=== PATIENT | female | born 1950 | race Caucasian/White ===

== ENCOUNTER 2016-04-10 13:41 | Emergency (ER) | payer MEDICARE ==
[2016-04-10] MEDS ORDERED: PREDNISONE 20 MG TAB PO ONE (13:59)
[2016-04-10] MEDS ORDERED: IPRATROPIUM/ALBUTEROL (0.5MG/3MG) NEB INH ONE (13:59)
[2016-04-10] MEDS ORDERED: BENZONATATE 100 MG CAPSULE PO ONE (14:00)
--- NOTE | 2016-04-10 14:01 | Emergency Department Record ---
History of Present Illness - General Chief Complaint: Cough Stated Complaint: COUGH,CHEST CONGESTION,LOSS OF VOICE Time Seen by Provider: 04/10/16 13:54 Source: Patient Mode of Arrival: Ambulatory Limitations: No limitations - History of Present Illness Initial Comments: 65 yo female presents with a cough for about one week. She is a former smoker. The cough is non productive. She has nasal drainage. She did not get a flu shot. She has had low grade fevers. No NVD. MD Complaint: Cough Onset/Timin -: Week(s) Severity: Moderate Consistency: Constant Improves With: Nothing Worsens With: Other (cough) Context: Sick contacts Associated Symptoms: Cough - Related Data Home Medications Medication Instructions Recorded Confirmed Last Taken Carvedilol [Coreg] 3.125 mg PO BID 10/09/15 04/10/16 04/09/16 Lisinopril 2.5 mg PO DAILY 10/09/15 04/10/16 04/09/16 Simvastatin [Zocor] 20 mg PO QHS 10/09/15 04/10/16 04/09/16 Previous Rx's Medication Instructions Recorded Naproxen [Naprosyn] 500 mg PO Q12H #30 tab 02/14/16 Azithromycin [Zithromax] 250 mg PO DAILY #4 tab 04/10/16 Benzonatate [Tessalon] 1 cap PO Q8H PRN #20 cap 04/10/16 Prednisone [Prednisone 20Mg] 20 mg PO BID #10 tab 04/10/16 Allergies Allergy/AdvReac Type Severity Reaction Status Date / Time No Known Drug Allergies Allergy Verified 04/10/16 13:46 Travel Screening - Travel/Exposure Within Last 30 Days Have you traveled within the last 30 days?: No - Travel/Exposure Within Last Year Have you traveled outside the [place] in the last year?: No - Additonal Travel Details Have you been exposed to anyone with a communicable illness?: No - Travel Symptoms Symptom Screening: None Review of Systems Constitutional: Reports: Fever. Denies: Chills, Malaise Eyes: Denies: Eye discharge ENT: Reports: Congestion. Denies: Throat pain Respiratory: Reports: Cough, Wheezes Cardiovascular: Denies: Chest pain, Palpitations, Syncope Endocrine: Denies: Fatigue Gastrointestinal: Denies: Abdominal pain, Diarrhea, Nausea, Vomiting Genitourinary: Denies: Dysuria, Urgency Musculoskeletal: Denies: Arthralgia, Back pain Skin: Denies: Bruising, Change in color Neurological: Denies: Headache Psychiatric: Denies: Anxiety Hematological/Lymphatic: Denies: Blood Clots, Easy bleeding, Easy bruising, Swollen glands Past Medical History - SOCIAL HISTORY Smoking Status: Former smoker Alcohol Use: None Drug Use: None - RESPIRATORY Hx Respiratory Disorders: No - CARDIOVASCULAR Hx Cardio Disorders: Yes Hx Pacemaker/Defib: Yes - NEURO Hx Neuro Disorders: No - GI Hx GI Disorders: No - Hx Genitourinary Disorders: No - ENDOCRINE Hx Endocrine Disorders: No Hx Diabetes: No Hx Thyroid Disease: No - MUSCULOSKELETAL Hx Musculoskeletal Disorders: No - PSYCH Hx Psych Problems: No - HEMATOLOGY/ONCOLOGY Hx Hematology/Oncology Disorders: No Family Medical History Any Significant Family History?: Yes Hx Heart Disease: Father Physical Exam - General General Appearance: Alert, Oriented x3, Cooperative, No acute distress Limitations: No limitations - Head Head exam: Normal inspection - Eye Eye exam: Normal appearance, PERRL. negative: Periorbital swelling, Scleral icterus - ENT ENT exam: Mucous membranes moist, Normal orophraynx, TM's normal bilaterally Ear exam: Normal external inspection. negative: External canal tenderness Nasal Exam: Discharge, Sinus tenderness. negative: Active bleeding, Dried blood Mouth exam: Normal external inspection, Tongue normal Teeth exam: Normal inspection. negative: Dental caries Throat exam: Normal inspection. negative: Tonsillar erythema, Tonsillar exudate - Neck Neck exam: Normal inspection, Full ROM. negative: Tenderness - Respiratory Respiratory exam: Decreased breath sounds, Rhonchi, Wheezes. negative: Normal lung sounds bilaterally, Accessory muscle use, Prolonged expiratory, Respiratory distress, Stridor - Cardiovascular Cardiovascular Exam: Regular rate, Normal rhythm, Normal heart sounds - GI/Abdominal GI/Abdominal exam: Soft - Rectal Rectal exam: Deferred - exam: Deferred - Extremities Extremities exam: Normal inspection, Full ROM, Normal capillary refill. negative: Pedal edema, Tenderness - Back Back exam: Denies: CVA tenderness (R), CVA tenderness (L) - Neurological Neurological exam: Alert, Normal gait, Oriented X3. negative: Altered - Psychiatric Psychiatric exam: Normal affect, Normal mood - Skin Skin exam: Dry, Intact, Normal color, Warm Course Vital Signs 04/10/16 13:49 Temperature 98 F Pulse Rate 99 H Respiratory 16 Rate Blood Pressure 135/104 Pulse Ox 100 - Reevaluation(s) Reevaluation #1: RT in room for a Duoneb treatment Flu swab completed CXR ordered Pt provided Prednisone and Tessalon 04/10/16 14:03 Reevaluation #2: Influenza is negative 04/10/16 14:23 Reevaluation #3: RT dispensed and taught Combivent inhaler at the bedside 04/10/16 14:23 The chest XR report was reviewed No acute process. CMG noted. 04/10/16 14:52 Reevaluation #4: The patient feels better after the treatments No hypoxia or pneumonia DC with PRednisone, Zithromax, Tessalon and Combivent 04/10/16 14:54 Disposition Disposition: Discharge Clinical Impression: Bronchitis Disposition: Home, Self-Care Condition: (1) Good Instructions: Acute Bronchitis (ED) Additional Instructions: Return if your symptoms worsen, fevers, short of breath or any new concerns Call your doctor tomorrow for a recheck Prednisone daily for 4 more days Tessalon as directed Prescriptions: Prednisone [Prednisone 20Mg] 20 mg PO BID #10 tab Benzonatate [Tessalon] 1 cap PO Q8H PRN #20 cap PRN Reason: Cough Azithromycin [Zithromax] 250 mg PO DAILY #4 tab Forms: Patient Portal Access Time of Disposition: 14:53
[2016-04-10] MEDS ORDERED: IPRATROPIUM/ALBUTEROL 4 GM INH INH PRN (14:18)
[2016-04-10 14:20] LABS: INFLUENZA A NEGATIVE (NEGATIVE); INFLUENZA B NEGATIVE (NEGATIVE)
[2016-04-10] MEDS ORDERED: AZITHROMYCIN 500 MG TABLET PO ONE (14:53)
--- NOTE | 2016-04-14 14:08 | RADIOLOGY REPORT ---
EXAM: CHEST, TWO VIEWS HISTORY: PATIENT HAS HAD A COUGH FOR TWO WEEKS. TECHNIQUE: Two views of the chest were provided along with the comparison study dated 11/23/09. FINDINGS: Cardiomegaly is noted. Mild tortuosity of the thoracic aorta is noted. In the interval there has been placement of a left anterior chest wall pacemaker. Lead tips are identified entering the region of the left subclavian vein and terminating in the region of the right atrium and right ventricle. The agusto appear unremarkable. There is no radiographic evidence of a focal infiltrate or pleural effusion. No pneumothorax is noted. IMPRESSION: CARDIOMEGALY IS NOTED WITHOUT RADIOGRAPHIC EVIDENCE OF AN ACUTE INTRATHORACIC PROCESS. JOB NUMBER: [id number] MTDD
== END 2016-04-10 15:06 | disposition home or self-care (01) ==
LOC: ER 13:41
DX: J20.9 Acute bronchitis, unspecified (principal); Z87.891 Personal history of nicotine dependence
CPT/HCPCS: 99283; 99284; 87400; 71020; 94640; 94664; J7512

== ENCOUNTER 2017-03-27 21:36 | Emergency (ER) | payer MEDICARE ==
--- NOTE | 2017-03-27 22:07 | Emergency Department Record ---
History of Present Illness - General Chief complaint: Eye Problem Stated complaint: LT EYE LIGHT PAIN RED SPOT/HEADACHE/LIGHT PAIN Time Seen by Provider: 03/27/17 22:06 Source: Patient, Family (daughter) Mode of Arrival: Ambulatory Limitations: No limitations Travel/Exposure to [facility] Within 21 Days of Symptoms: No - History of Present Illness Initial comments: 66 yo female presents to ED for evaluation of redness to the left eye that occurred earlier today. Patient denies trauma or injury to the eye, denies anticoagulation use, and denies change in vision symptoms. Patient reports nonproductive cough symptoms while working outside. Patient denies health problems other than chronic headache symptoms. MD chief complaint: Eye redness Onset/Timin -: Hour(s) Onset Description: Other Location: Left eye Place: Home If Injury: None Eye Symptoms: Redness Severity: Moderate Consistency: Constant Associated Symptoms: Cough, Headache Treatments Prior to Arrival: None - Related Data Visual acuity (L) = 20/: 20 Visual acuity (R) = 20/: 20 With correction: No Hx Tetanus Toxoid Vaccination: No Previous Rx's Medication Instructions Recorded Naproxen [Naprosyn] 500 mg PO Q12H #30 tab 02/14/16 Allergies Allergy/AdvReac Type Severity Reaction Status Date / Time No Known Drug Allergies Allergy Verified 03/27/17 21:57 Travel Screening - Travel/Exposure Within Last 30 Days Have you traveled within the last 30 days?: No - Travel/Exposure Within Last Year Have you traveled outside the [place] in the last year?: No - Additonal Travel Details Have you been exposed to anyone with a communicable illness?: No - Travel Symptoms Symptom Screening: None Review of Systems Constitutional: Denies: Chills, Fever, Malaise, Night sweats Eyes: Reports: Other (bleeding in the white part of her left eye). Denies: Eye discharge, Eye pain, Photophobia, Vision change ENT: Denies: Congestion, Ear pain, Epistaxis Respiratory: Denies: Cough, Dyspnea Cardiovascular: Denies: Chest pain, Dyspnea on exertion Endocrine: Denies: Fatigue, Heat or cold intolerance Gastrointestinal: Denies: Abdominal pain, Nausea, Vomiting Genitourinary: Denies: Incontinence, Retention Musculoskeletal: Denies: Arthralgia, Back pain Skin: Denies: Bruising, Change in color Neurological: Denies: Abnormal gait, Confusion, Headache, Seizure Psychiatric: Denies: Anxiety Hematological/Lymphatic: Denies: Anemia, Blood Clots, Easy bleeding, Easy bruising Past Medical History - SOCIAL HISTORY Smoking Status: Current every day smoker Alcohol Use: None Drug Use: None - RESPIRATORY Hx Respiratory Disorders: No - CARDIOVASCULAR Hx Cardio Disorders: Yes Hx Pacemaker/Defib: Yes - NEURO Hx Neuro Disorders: No - GI Hx GI Disorders: No - Hx Genitourinary Disorders: No - ENDOCRINE Hx Endocrine Disorders: No Hx Diabetes: No Hx Thyroid Disease: No - MUSCULOSKELETAL Hx Musculoskeletal Disorders: No - PSYCH Hx Psych Problems: No - HEMATOLOGY/ONCOLOGY Hx Hematology/Oncology Disorders: No Family Medical History Any Significant Family History?: No Hx Heart Disease: Father Physical Exam - General General Appearance: Alert, Oriented x3, Cooperative, No acute distress Limitations: No limitations - Head Head exam: Atraumatic, Normocephalic, Normal inspection Head exam detail: negative: Abrasion, Contusion, Vanegas's sign, General tenderness, Hematoma, Laceration - Eye Eye exam: Normal appearance, Other (Mild subconjunctival hemorrhage to the left lateral sclera). negative: Conjunctival injection, Periorbital swelling, Periorbital tenderness, Scleral icterus With correction: No - ENT Ear exam: negative: Auricular hematoma, Auricular trauma Nasal Exam: negative: Active bleeding, Discharge, Dried blood, Foreign body Mouth exam: negative: Drooling, Laceration, Muffled voice, Tongue elevation - Neck Neck exam: Normal inspection. negative: Meningismus, Tenderness - Respiratory Respiratory exam: Normal lung sounds bilaterally. negative: Rales, Respiratory distress, Rhonchi, Stridor - Cardiovascular Cardiovascular Exam: Regular rate, Normal rhythm, Normal heart sounds - GI/Abdominal GI/Abdominal exam: Soft. negative: Rebound, Rigid, Tenderness - Rectal Rectal exam: Deferred - exam: Deferred - Extremities Extremities exam: Normal inspection. negative: Calf tenderness, Pedal edema, Tenderness - Back Back exam: Denies: CVA tenderness (R), CVA tenderness (L) - Neurological Neurological exam: Alert, Normal gait, Oriented X3 - Psychiatric Psychiatric exam: Normal affect, Normal mood - Skin Skin exam: Normal color. negative: Abrasion Type of lesion: negative: abrasion Course Vital Signs 03/27/17 21:44 Temperature 98.2 F Pulse Rate 84 Respiratory 18 Rate Blood Pressure 126/90 Pulse Ox 98 - Reevaluation(s) Reevaluation #1: 03/27/17 22:11 VA reviewed and is 20/20 bilaterally. Patient is well appearing without change in vision or eye pain symptoms, examination appears c/w subconjunctival hemorrhage. Patient was counseled about the course of the disease, appears stable for discharge at this time. Disposition Disposition: Discharge Clinical Impression: Subconjunctival bleed Qualifiers: Laterality: left Qualified Code(s): H11.32 - Conjunctival hemorrhage, left eye Disposition: Home, Self-Care Condition: (2) Stable Instructions: Subconjunctival Hemorrhage (ED) Additional Instructions: Return to ED if your symptoms worsen or if you have any concerns. Follow-up with your family doctor in 3-5 days as directed. Forms: Patient Portal Access Time of Disposition: 22:07 Quality - Quality Measures Quality Measures: N/A - Blood Pressure Screening Does Patient Have Any of the Following: No Blood Pressure Classification: Hypertensive Reading Systolic Measurement: 126 Diastolic Measurement: 90 Screening for High Blood Pressure: < First Hypertensive BP, F/U Documented > [ [id number]] First Hypertensive Follow-up Interventions: Referral to alternative/primary care provider.
== END 2017-03-27 22:18 | disposition home or self-care (01) ==
LOC: ER 21:36
DX: H11.32 Conjunctival hemorrhage, left eye (principal); R51 Headache; R05 Cough; F17.210 Nicotine dependence, cigarettes, uncomplicated
CPT/HCPCS: 99282

== ENCOUNTER 2018-06-03 21:05 | Emergency (ER) | payer MEDICARE ==
--- NOTE | 2018-06-03 21:15 | Emergency Department Record ---
History of Present Illness - General Stated Complaint: SLURRING SPEECH,LT SIDE FACE DROOPING Time Seen by Provider: 06/03/18 21:09 Source: Patient, Family Limitations: No limitations - History of Present Illness Initial Comments: 67 yo female presents to the ED with difficulty with her speech. She denies any history of stroke. She does have some headache. She was walking normally. Otherwise she seems quieter. Around 5pm she was noted have trouble identifying things such as a chair. A family member noticed at 8:15pm some talking difficulties. She smokes. She has a pacemaker. Her PCP is [facility] in [place]. Cardiology is [facility] in [place]. 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 She ambulated into the ED -: Hour(s) (4.25) [facility] Severity: Mild Quality: Other Improves With: None Worsens With: None On Anticoagulants: No Context: Sudden onset Associated Symptoms: Headaches - Alex Coma Scale Eye Response: (4) Open spontaneously Motor Response: (6) Obeys commands Verbal Response: (5) Oriented [place]elow Total: 15 - Related Data Home Medications: Previous Rx's Medication Instructions Recorded Naproxen [Naprosyn] 500 mg PO Q12H #30 tab 02/14/16 Allergies/Adverse Reactions: Allergies Allergy/AdvReac Type Severity Reaction Status Date / Time No Known Drug Allergies Allergy Verified 03/27/17 21:57 Review of Systems Constitutional: Denies: Chills, Fever, Malaise, Weakness Eyes: Denies: Eye discharge, Eye pain ENT: Denies: Congestion, Throat pain Respiratory: Denies: Cough Cardiovascular: Denies: Chest pain, Palpitations, Syncope Endocrine: Denies: Fatigue Gastrointestinal: Denies: Abdominal pain, Diarrhea, Nausea, Vomiting Musculoskeletal: Denies: Arthralgia, Back pain, Joint swelling, Myalgia Skin: Denies: Bruising, Change in color, Rash Neurological: Reports: Headache Psychiatric: Denies: Anxiety Hematological/Lymphatic: Denies: Blood Clots, Easy bleeding, Easy bruising Past Medical History - SOCIAL HISTORY Smoking Status: Current every day smoker Drug Use: None - RESPIRATORY Hx Respiratory Disorders: No - CARDIOVASCULAR Hx Cardio Disorders: Yes Hx Pacemaker/Defib: Yes - NEURO Hx Neuro Disorders: No - GI Hx GI Disorders: No - Hx Genitourinary Disorders: No - ENDOCRINE Hx Endocrine Disorders: No Hx Diabetes: No Hx Thyroid Disease: No - MUSCULOSKELETAL Hx Musculoskeletal Disorders: No - PSYCH Hx Psych Problems: No - HEMATOLOGY/ONCOLOGY Hx Hematology/Oncology Disorders: No Family Medical History Hx Heart Disease: Father Physical Exam - General General Appearance: Alert, Oriented x3, Cooperative, No acute distress Limitations: No limitations - Head Head exam: Atraumatic, Normocephalic, Normal inspection - Eye Eye exam: Normal appearance, PERRL, EOMI. negative: Conjunctival injection, Scleral icterus - ENT ENT exam: Normal exam, Mucous membranes moist Ear exam: Normal external inspection Nasal Exam: Normal inspection Mouth exam: Normal external inspection - Neck Neck exam: Normal inspection - Respiratory Respiratory exam: Normal lung sounds bilaterally. negative: Respiratory distress - Cardiovascular Cardiovascular Exam: Regular rate, Normal rhythm, Normal heart sounds Peripheral Pulses: 2+: Radial (R), Radial (L) - GI/Abdominal GI/Abdominal exam: Soft. negative: Hypoactive bowel sounds, Tenderness - Rectal Rectal exam: Deferred - exam: Deferred - Extremities Extremities exam: Normal inspection. negative: Tenderness - Back Back exam: Denies: CVA tenderness (R), CVA tenderness (L) - Neurological Neurological exam: Alert, Oriented X3. negative: Altered, CN II-XII intact ( Right facial weakness with smile) - Psychiatric Psychiatric exam: Normal affect, Normal mood. negative: Agitated, Anxious - Skin Skin exam: Dry, Intact, Normal color, Warm Stroke Assessment - NIH Stroke Scale 1a. Level of Consciousness: (0) Alert 1b. LOC Questions: (0) Answers Correctly 1c. LOC Commands: (0) Performs Tasks Correctly 2. Best Gaze: (0) Normal 3. Visual: (0) No Visual Loss 4. Facial Palsy: (0) Normal Symmetrical Movement 5a. Motor Arm Left: (0) No Drift 5b. Motor Arm Right: (0) No Drift 6a. Motor Leg Left: (0) No Drift 6b. Motor Leg Right: (0) No Drift 7. Limb Ataxia: (0) Absent 8. Sensory: (0) Normal 9. Best Language: (0) No Aphasia 10. Dysarthria: (1) Mild/Moderate Dysarthria 11. Extinction/Inattention: (0) No Abnormality NIH Stoke Scale Total: 1 Course Vital Signs 06/03/18 21:09 Pulse Rate [ 80 Pulse Ox Probe] Respiratory 20 Rate Blood Pressure 143/102 [Left Arm] Pulse Ox 100 - Reevaluation(s) Reevaluation #1: NIH at this time is 1 No expressive aphasia on examination. She named all objects 06/03/18 21:17 EKG #1: Rate: 73 Rhythm: Paced [place]: L Intervals: QRS 138 ST segments: Paced Prior: None 06/03/18 21:37 The labs were reviewed. No acute changes. 06/03/18 21:[address] demonstrates a left frontal mass with vasogenic edema Decadron ordered [facility] will be contacted for transfer for further work up 06/03/18 22:01 Dr Payne accepts the patient for transfer ED to ED for evaluation and admission for the new cerebral mass 06/03/18 22:16 No prior cancer history per the patient and family Medical Decision Making - Lab Data Result diagrams: 06/03/18 21:11 06/03/18 21:11 Disposition Disposition: Transfer Clinical Impression: Cerebral mass Disposition: Acute Care Hospital Transfer Transfer To: [facility] Reason For Transfer: Facial droop Accepting Physician: Elmer Time Discussed w/Accepting Physician: 22:01 Condition: (2) Stable Time of Disposition: 21:18 Quality - Quality Measures Quality Measures: N/A - Blood Pressure Screening Does Patient Have Any of the Following: Active Dx of HTN Blood Pressure Classification: Hypertensive Reading Systolic Measurement: 136 Diastolic Measurement: 102 Screening for High Blood Pressure: Patient Exclusion, Hx of HTN [G9744]
[2018-06-03 21:16] LABS: BASO % 1.7 % (0-6); EOS % 2.5 % (0-6); GRAN % 66.9 % (47-80); HEMATOCRIT 42.9 % (35.0-47.0); LYMPH % 21.4 % (16-45); MEAN CELL VOLUME 90.9 fl (81-97); MEAN CORPUSCULAR HEMOGLOBIN 29.7 pg (27-33); MEAN CORPUSCULAR HGB CONC 32.6 g/dl (32-36); MEAN PLATELET VOLUME 9.8 fl (7.4-10.4); MONO % 7.5 % (0-9); PLATELET COUNT 140 K/uL (130-400); RED BLOOD COUNT 4.72 M/uL (3.80-5.40); RED CELL DISTRIBUTION WIDTH 12.3 % (11.5-14.5)
[2018-06-03 21:25] LABS: INR 1.1; PARTIAL THROMBOPLASTIN TIME 27.8 SECONDS (24.5-39.1); PROTHROMBIN TIME (PATIENT) 10.6 SECONDS (9.5-12.1)
[2018-06-03 21:27] LABS: BLOOD UREA NITROGEN 12 mg/dL (8-23); CREATININE 0.8 mg/dL (0.5-0.9); EST GLOMERULAR FILTRATION RATE > 60 mL/min
[2018-06-03 21:28] LABS: TOTAL PROTEIN 7.6 g/dL (6.6-8.7)
[2018-06-03 21:30] LABS: GLUCOSE,RANDOM 94 mg/dL (74-109)
[2018-06-03 21:32] LABS: ALT/SGPT 9 U/L (<33); AST/SGOT 16 U/L (10.0-35.0)
[2018-06-03 21:33] LABS: ALB/GLOB RATIO 1.6 (1.1-1.8); ALBUMIN 4.7 g/dL (4.0-5.0); ALKALINE PHOSPHATASE 94 U/L (35-104)
[2018-06-03] MEDS ORDERED: DEXAMETHASONE SOD PHOSPHATE 10MG/ML VIAL IVP ONE (21:46)
--- NOTE | 2018-06-05 10:24 | CT SCAN REPORT ---
EXAM: CT SCAN OF THE HEAD HISTORY: PATIENT HAS RIGHT FACIAL DROOP, CONFUSION. NO PRIOR CT SCANS. TECHNIQUE: Serial axial CT scan of the head was performed 2.5 mm intervals from the base of the skull to the apex without the use of intravenous contrast. Sagittal and coronal reconstructions are provided. Comparison: Brain MRI dated 01/16/10 is provided. FINDINGS: Within the left frontal lobe, there is a 3.1 cm in AP dimension x 2.5 cm in transverse dimension lesion with surrounding vasogenic edema. This findings is suspicious for a neoplastic process. Moderate mass effect upon the left frontal lobe is noted. Minimal midline shift to the right is noted. There is no CT evidence of intra or extraaxial fluid to suggest bleeding. Bone windows demonstrate no CT evidence of a fracture or dislocation of the skull. The paranasal sinuses are unremarkable. IMPRESSION: LEFT FRONTAL LOBE MASS IS NOTED DISCUSSED ABOVE. MRI OF THE BRAIN CAN BE OBTAINED FOR FURTHER CHARACTERIZATION. THESE FINDINGS WERE DISCUSSED WITH DR. CHYNA NEGRO IN THE EMERGENCY DEPARTMENT AT 9:47 P.M. ON 06/03/18. JOB NUMBER: [id number] MTDD
== END 2018-06-03 22:30 | disposition short-term general hospital (02) ==
LOC: ER 21:05
DX: R22.0 Localized swelling, mass and lump, head (principal); R47.81 Slurred speech; R47.1 Dysarthria and anarthria; R51 Headache; I10 Essential (primary) hypertension; F17.210 Nicotine dependence, cigarettes, uncomplicated; Z95.0 Presence of cardiac pacemaker
CPT/HCPCS: 99285 ×2; 96374; 85025; 85730; 85610; 80053; 84484; 70450; 93005; 93010; J1100